=== PATIENT | female | born 1970 | race Caucasian/White ===

== ENCOUNTER 2017-01-16 01:02 | Emergency (ER) | payer OTHER ==
[2017-01-16 04:34] VITALS: BP 139/81
== END 2017-01-16 04:34 | disposition home or self-care (01) ==
LOC: ED 01:02
DX: J06.9 Acute upper respiratory infection, unspecified (principal); Z90.49 Acquired absence of other specified parts of digestive tract; Z90.89 Acquired absence of other organs
CPT/HCPCS: J7512; J7613

== ENCOUNTER 2017-01-21 09:10 | Emergency (ER) | payer OTHER ==
[~2017-01-21] VITALS: Ht 157.5 cm; Wt 112.5 kg
[2017-01-21 09:25] VITALS: BP 112/68
== END 2017-01-21 10:50 | disposition home or self-care (01) ==
LOC: ED 09:10
DX: J02.9 Acute pharyngitis, unspecified (principal); H92.02 Otalgia, left ear